=== PATIENT | female | born 1980 | race Hispanic/Latino ===

== ENCOUNTER 2020-06-09 07:37 | Outpatient (CLI) | payer OTHER, SELFPAY ==
[2020-06-09 16:54] LABS: SARS-CoV-2 RNA PCR Negative
== END 2020-06-09 07:38 | disposition home or self-care (01) ==
LOC: ANHCOVIDDT 07:38
PROVIDERS: PCP Physician Assistant; Visit Provider Internal Medicine Gastroenterology
DX: Z01.818 Encounter for other preprocedural examination (principal); Z20.828 Contact with and (suspected) exposure to other viral communicable diseases
CPT/HCPCS: 87635; C9803; U0003

== ENCOUNTER 2020-06-11 00:36 | Day surgery (SDC) | payer OTHER, SELFPAY ==
[2020-06-05 14:42] VITALS: BMI 35.4
[2020-06-11] VITALS (11 sets, daily range): BP systolic 100–127; BP diastolic 55–82; PULSE 79–99; RESP 12–30; TEMP 36.1–36.2; O2SAT 93–99
[2020-06-11] MEDS: ACETAMINOPHEN 500 MG TABLET 1000 MG PO (06:14)
[2020-06-11] MEDS: LACTATED RINGERS 1,000 ML 30 ML IV CONT ×2 (06:45→08:34)
[2020-06-11] MEDS: KETOROLAC 15 MG/ML VIAL (*BKC) IV PUSH (06:59)
--- NOTE | 2020-06-11 07:15 | WPDHPUPDATE1 ---
History and Physical Update Update Date/Time: 06/11/20 07:15 History and Physical has been reviewed, including an updated exam of the patient. There are NO changes in the patient's condition. Risks, benefits, and alternatives have been discussed and questions answered. Patient agrees to proceed with procedure.
--- NOTE | 2020-06-11 07:17 | P.PNAN_ITS ---
Anes - Initial Pre Proc Eval Procedure: Operation Date: 06/11/20 07:30 Proposed Procedures p Laparoscopic Bilateral Tubal Sterilization with Cautery - Luisana Diaz MD s Hysteroscopy With Blossom Endometrial Ablation - Luisana Diaz MD Date/Time: 06/11/20 07:17 Surgeon: Luisana Diaz MD Pre Op Diagnosis: sterilization Patient Data Age: 39 Gender: F Height: 1.63 m Weight: 93.63 kg Allergies Allergy/AdvReac Type Severity Reaction Status Date / Time No Known Allergies Allergy Unverified 06/11/20 06:21 Home Medications Medication Instructions Recorded Confirmed Type albuterol sulfate 1 - 2 puff INHALATION PRN PRN 06/05/20 06/05/20 History omeprazole 40 mg DAILY 06/05/20 06/05/20 History Patient hx anesthesia problems: none Family hx anesthesia problems: none [facility] Past Medical History Medical History (Updated 06/11/20 @ 07:17 by Neeraj Benoit DO) GERD (gastroesophageal reflux disease) Social History Social History Years smoked: 20 Smoking status: Never smoker Additional smoking assessment comments: STATES QUIT 2014 Alcohol intake: current Drinks per week: 1 Substance use: never Substance use type: does not use Spiritual care concerns: No Anes - Eval Final PreProcedure Day of Procedure 06/11/20 07:17 Patient weight: obese Heart: regular rate and rhythm Lungs: clear to auscultation and normal air movement Airway: Mallampati scale class II Neurological: alert and oriented Last oral intake: >/= 8 hours ASA classification: II Emergent: no Anesthetic plan: proceed Anesthesia type and monitoring: general ETT and standard monitoring Informed Consent: The patient's anesthetic plan and its attendant risks and benefits were discussed with the patient/family/POA. Questions were solicited and answers provided to the satisfaction of the patient/family/POA.
--- NOTE | 2020-06-11 08:24 | SUR.OPER ---
Length 4.0 Width 2.5 Power 55 Time 95 seconds
--- NOTE | 2020-06-11 08:26 | SUR.OPER ---
Hysteroscopy irrigation 200mnl in and 150ml out
--- NOTE | 2020-06-11 08:40 | PM.PROC ---
Procedure Note - Detailed Date of procedure: 06/11/20 Pre-op diagnosis: sterilization Post-op diagnosis: same Procedure performed: Laparoscopic bilateral tubal ligation, Endometrial Ablation Description of procedure: Patient was taken the operating room. She has prepped draped in the dorsal lithotomy position after induction of general anesthesia. A 5 mm abdominal incision was made in left upper quadrant of the abdomen with scalpel. A 5 mm trocars inserted the intra-abdominal cavity under direct visualization of the scope. Pneumoperitoneum was achieved. A 5 mm periumbilical incision was made using a scalpel on the abdominal scan. A 5 mm trocar was inserted the intra-abdominal cavity under visualization of the scope. The fallopian tube was grasped with the bipolar cautery in the ampullary region. It was completely desiccated in a 1.5 cm area of the fallopian tube. This was performed in identical fashion on the contralateral side. The instruments were withdrawn. The pneumoperitoneum was reduced. The trocars were removed. The skin was closed with subcuticular 4 Monocryl. This incisions were covered with Dermabond. Our attention was then turned to the endometrial ablation portion of the procedure. A speculum was placed in the vagina. The cervix was grasped with a tenaculum. The cervix was dilated to approximately 8 mm with Gutierrez dilators. The hysteroscope was inserted. And the below findings were noted. Measurements of the cervix were taken using the uterine sound and the hysteroscope. The intrauterine cavity measurements were entered into the device. The device was inserted the intrauterine cavity. The array was expanded. . The energy and safety cycles within initiated. They were completed under 3 minutes. the array was collapsed, and the device was removed the uterine cavity. the hysteroscope was reinserted and the cavity was well desiccated, it was clearly observed. Hysteroscope was withdrawn. The tenaculum was removed. The speculum was removed. The patient tolerated the procedure well. She was taken to recover room in stable condition. Anesthesia: GETA Surgeon: Luisana Diaz MD Estimated blood loss (mL): 10 Drains: No Packing: No Pathology: none sent Complications: No immediate complications Condition: stable Disposition: PACU Findings: Normal female pelvic anatomy. There were numerous paratubal cysts throughout both fallopian tubes. There were small.
[2020-06-11] MEDS: fentaNYL CITRATE INJ (*CRX) 100 MCG/2 ML VIAL 25 MCG IV PUSH ×8 (09:04→09:42)
[2020-06-11] MEDS: oxyCODONE HCL (*CRX) 5 MG TAB IR PO (10:19)
== END 2020-06-11 11:11 | disposition home or self-care (01) ==
PROVIDERS: PCP Physician Assistant; Visit Provider Obstetrics & Gynecology
PROC: (CPT 58671; principal; 2020-06-11 07:30)
PROC: 0U5B8ZZ Destruction of Endometrium, Via Natural or Artificial Opening Endoscopic (ICD-10-PCS; CPT 58563; 2020-06-11 07:30)
DX: Z30.2 Encounter for sterilization (principal); K21.9 Gastro-esophageal reflux disease without esophagitis; E66.8 Other obesity; Z68.33 Body mass index [BMI] 33.0-33.9, adult
CPT/HCPCS: 58563; 58670; A9270; J0330; J1100; J1885; J2250; J2405; J2704; J3010; J7030; J7120

== ENCOUNTER 2021-08-03 15:27 | Outpatient (CLI) | payer OTHER, SELFPAY ==
--- NOTE | ~2021-08-03 | XR_ITS ---
XR chest 2V DATE: 08/03/2021 15:46 INDICATION: Chronic cough for 1.5 months TECHNIQUE: PA and lateral views COMPARISON: None FINDINGS: Normal heart size. No hilar or mediastinal enlargement. No pulmonary infiltrate or consolid ation, pleural effusion or pulmonary vascular congestion or pneumothorax. Mild thoracolumbar dextroscoliosis. IMPRESSION: No active cardiopulmonary disease Reviewed, dictated and finalized at location B. EMS PROJECT MANAGER
== END 2021-08-03 15:28 | disposition home or self-care (01) ==
LOC: ANHIMG 15:31
PROVIDERS: PCP Physician Assistant; Visit Provider Physician Assistant
DX: R05.3 Chronic cough (principal)
CPT/HCPCS: 71046